=== PATIENT | female | born 1960 | race Caucasian/White ===

== ENCOUNTER → 2022-11-30 08:15 | Outpatient (CLI) | payer OTHER, SELFPAY | PROVIDERS: Family Provider Family Medicine; PCP Family Medicine; Referring Provider Family Medicine; Visit Provider Family Medicine | DX: G56.03 Carpal tunnel syndrome, bilateral upper limbs (principal); M77.11 Lateral epicondylitis, right elbow | CPT/HCPCS: 95886; 95911 ==

== ENCOUNTER → 2024-12-22 08:06 | Outpatient (CLI) | payer OTHER, SELFPAY ==
--- NOTE | 2024-12-22 09:37 | DI.RAD.S_ITS ---
PROCEDURE: XR CHEST 2V INDICATIONS: ASTHMA TECHNIQUE: 2 views of the chest were acquired. COMPARISON: None. FINDINGS: Surgical changes and devices: None. Lungs and pleura: Lungs are clear. No pleural effusions or pneumothorax. Mediastinum: Mediastinal contours are normal. Heart size is normal. Bones and chest wall: No suspicious bony abnormalities. Soft tissues appear unremarkable. IMPRESSION: No acute cardiopulmonary abnormality is seen. Dictated by: Dayton Salas M.D. on 12/22/2024 at 23:24 Approved by: Dayton Salas M.D. on 12/22/2024 at 23:26
== END ==
LOC: RESP 08:08
PROVIDERS: Family Provider Family Medicine; PCP Family Medicine; Referring Provider Chiropractor; Visit Provider Chiropractor
DX: J45.909 Unspecified asthma, uncomplicated (principal)
CPT/HCPCS: 71046; 94060